=== PATIENT | female | born 1980 | race Caucasian/White ===

== ENCOUNTER 2019-06-19 11:17 | Emergency (ER) | payer OTHER ==
[2019-06-19 11:25] VITALS: BP 129/79; PULSE 81; TEMP 98; BMI 27.4
[2019-06-19] MEDS ORDERED: SODIUM CHLORIDE FOR INHALATION 3 ML VIAL.NEB IH ONE (11:26)
--- NOTE | 2019-06-19 12:25 | PDOC ---
History of Present Illness - General Chief Complaint: Respiratory Stated Complaint: COUGHING/CHEST PAIN Time Seen by Provider: 06/19/19 11:26 - History of Present Illness Initial Comments: 06/19/19 12:23 39-year-old female with sinus pressure and congestion x5 weeks no systemic symptoms. Self medicated with a Z-Jac however she did not finish the course about a week ago Past History - Past Medical History Allergies/Adverse Reactions: Allergies Allergy/AdvReac Type Severity Reaction Status Date / Time No Known Allergies Allergy Verified 06/19/19 11:25 Home Medications: Ambulatory Orders Amox-Tr/K Cl [Augmentin - 875Mg Tablet] 1 tab PO BID #20 tablet 06/19/19 Budesonide [Rhinocort Allergy] 1 spray NS ONCE #1 spray.pump 06/19/19 COPD: No - Psycho Social/Smoking Cessation Hx Smoking Status: No Smoking History: Never smoked Number of Cigarettes Smoked Daily: 0 Review of Systems - Review of Systems Constitutional: No: Fever HEENTM: Yes: Nose Pain, Nose Congestion *Physical Exam - Vital Signs Last Vital Signs Temp Pulse Resp BP Pulse Ox 98 F 81 18 129/79 99 06/19/19 11:22 06/19/19 11:22 06/19/19 11:22 06/19/19 11:22 06/19/19 12:05 - Physical Exam 06/19/19 12:23 GENERAL: The patient is awake, alert, and fully oriented, in no acute distress. HEAD: Normal with no signs of trauma. EYES: sclera anicteric, conjunctiva clear. ENT: Ears normal tympanic membranes normal oropharynx clear uvula midline tenderness about the maxillary and frontal sinuses NECK: Normal range of motion LUNGS: Breath sounds equal, clear to auscultation bilaterally. No wheezes, and no crackles. HEART: S1 and S2 without murmur, rub or gallop. ABDOMEN: Soft, nontender, normoactive bowel sounds. No guarding, no rebound. No masses. EXTREMITIES: Normal range of motion, no edema. No clubbing or cyanosis. No cords, erythema, or tenderness. NEUROLOGICAL: Cranial nerves II through XII grossly intact. Normal speech, normal gait. PSYCH: Normal mood, normal affect. SKIN: Warm, Dry, normal turgor, no rashes or lesions noted. ED Treatment Course - RADIOLOGY Radiology Studies Ordered: Category Date Time Status CHEST PA & LAT [RAD] Stat Radiology 06/19/19 11:34 Ordered - Medications Given in the ED: ED Medications Discontinued Medications Generic Name Dose Route Start Last Admin Trade Name Kaity PRN Reason Stop Dose Admin Sodium Chloride 6 ml 06/19/19 11:26 06/19/19 12:04 Normal Saline For Inhalation - IH 06/19/19 11:27 6 ml ONCE ONE Administration Medical Decision Making - Medical Decision Making 06/19/19 12:23 Chest x-ray clear examination and history consistent with sinusitis will treat for bacterial sinusitis with follow-up with ENT 06/19/19 12:24 EKG reviewed Discharge - Discharge Information Problems reviewed: Yes Clinical Impression/Diagnosis: Sinusitis Condition: Stable Disposition: HOME - Admission No - Additional Discharge Information Prescriptions: Amox-Tr/K Cl [Augmentin - 875Mg Tablet] 1 tab PO BID #20 tablet Budesonide [Rhinocort Allergy] 1 spray NS ONCE #1 spray.pump - Follow up/Referral Referrals: Jose De Jesus Lockett MD [Primary Care Provider] - - Patient Discharge Instructions Additional Instructions: Please take the antibiotics as directed and finish the entire course. Please use the nasal spray as directed. Return to the emergency room for worsening symptoms and without fail follow-up with ear nose and throat doctor in 2 to 3 days for further evaluation and treatment options. - Post Discharge Activity
--- NOTE | 2019-06-20 01:11 | EKG ---
Test Reason : Blood Pressure : / mmHG Vent. Rate : 090 BPM Atrial Rate : 090 BPM P-R Int : 158 ms QRS Dur : 066 ms QT Int : 356 ms P-R-T Axes : 066 063 008 degrees QTc Int : 435 ms POOR DATA QUALITY, INTERPRETATION MAY BE ADVERSELY AFFECTED NORMAL SINUS RHYTHM POSSIBLE LEFT ATRIAL ENLARGEMENT BORDERLINE ECG NO PREVIOUS ECGS AVAILABLE Confirmed by SANDY FUENTES, LEDY ([id number]) on 06/20/2019 1:11:03 AM Referred By: Confirmed By:LEDY DELGADO MD
== END 2019-06-19 12:33 | disposition home or self-care (01) ==
LOC: JERFT 11:17
PROC: 3E0F7GC Introduction of Other Therapeutic Substance into Respiratory Tract, Via Natural or Artificial Opening (ICD-10-PCS; principal; 2019-06-19)
DX: J32.9 Chronic sinusitis, unspecified (principal)
CPT/HCPCS: 71046-TC-FY; 93005; 93010; 94640; 99281-25

== ENCOUNTER 2022-01-08 17:30 | Emergency (ER) | payer OTHER ==
[2022-01-08 17:37] VITALS: BP 126/69; PULSE 99; RESP 18; TEMP 97.8; BMI 26.1
== END 2022-01-08 20:31 | disposition left against medical advice (07) ==
LOC: JER 17:30
DX: R07.9 Chest pain, unspecified (principal)
CPT/HCPCS: 93005; 93010; 99281-25